=== PATIENT | female | born 1955 | race Caucasian/White ===

== ENCOUNTER → 2016-09-03 | Outpatient (CLI) | payer OTHER ==
[~2016-09-03] MED LIST: LEVAQUIN750 MG PO; LEVO-T150 MCG PO; LIPITOR20 MG PO; METFORMIN HCL500 M4 PO; PRILOSEC20 MG PO; PROAIR HFA8.5 GM IH; ZOFRAN4 MG PO
== END | disposition home or self-care (01) ==
LOC: AMB 12:00
PROC: 0HB4XZZ Excision of Neck Skin, External Approach (ICD-10-PCS; principal; 2016-09-03)
DX: L57.0 Actinic keratosis (principal); D18.01 Hemangioma of skin and subcutaneous tissue
CPT/HCPCS: 88305

== ENCOUNTER → 2016-09-10 | Outpatient (CLI) | payer OTHER ==
[~2016-09-10] MED LIST changes: +PRINIVIL20 MG PO
== END | disposition home or self-care (01) ==
LOC: AMB 13:30
DX: Z48.02 Encounter for removal of sutures (principal)
CPT/HCPCS: 99211